=== PATIENT | male | born 1995 | race Two or more races ===

== ENCOUNTER 2016-11-12 11:25 | Emergency (ER) | payer OTHER, MEDICAID ==
[~2016-11-12] VITALS: Ht 170.2 cm; Wt 72.6 kg
[2016-11-12 12:42] VITALS: BP 117/68
== END 2016-11-12 14:49 | disposition home or self-care (01) ==
LOC: ER 11:25
DX: S61.212A Laceration without foreign body of right middle finger without damage to nail, initial encounter (principal); W25.XXXA Contact with sharp glass, initial encounter; Y93.89 Activity, other specified; Y99.8 Other external cause status; Y92.89 Other specified places as the place of occurrence of the external cause
CPT/HCPCS: 12001